=== PATIENT | male | born 1990 | race Two or more races ===

== ENCOUNTER 2022-07-04 17:07 | Emergency (ER) | payer SELFPAY ==
[~2022-07-04] VITALS: Ht 165.1 cm; Wt 69.0 kg
[2022-07-04 17:11] VITALS: BP 122/70
== END 2022-07-04 20:20 | disposition home or self-care (01) ==
LOC: ER 17:16
DX: F10.129 Alcohol abuse with intoxication, unspecified (principal); Y90.0 Blood alcohol level of less than 20 mg/100 ml
CPT/HCPCS: 99283